=== PATIENT | male | born 1945 | race Asian ===

== ENCOUNTER 2017-01-04 15:14 | Inpatient (IN) | payer MEDICARE, BC ==
[~2017-01-04] VITALS: Ht 175.3 cm; Wt 74.6 kg
[2017-01-04 15:30] VITALS: BP 109/68
[2017-01-04] MEDS ORDERED: ONDANSETRON ODT 4 MG PO PRN (17:30)
[2017-01-04] MEDS ORDERED: ONDANSETRON 2MG/ML, 2ML IVPush PRN (17:30)
[2017-01-04] MEDS ORDERED: GLUCAGON 1 MG IM PRN (17:30)
[2017-01-04] MEDS ORDERED: HYDROcodone/APAP 5/325 TABLET PO PRN (17:30)
[2017-01-04] MEDS: INSULIN ASPART 100 UNITS/ML, PEN SQ-INSULIN SCH ×2 (17:30→20:24)
[2017-01-04] MEDS ORDERED: BISACODYL 10 MG SUPP PR PRN (17:30)
[2017-01-04] MEDS ORDERED: PLEASE ENTER ALLERGIES MC SCH ×2 (17:30)
[2017-01-04] MEDS ORDERED: MORPHINE SULFATE 4 MG/ML, 1ML IVPush PRN (17:30)
[2017-01-04] MEDS ORDERED: DEXTROSE 4 GM TAB.CHEW PO PRN (17:30)
[2017-01-04] MEDS: CARVEDILOL 12.5 MG TABLET PO SCH (18:27)
[2017-01-04] MEDS: HEPARIN 5,000 UNITS/ML, 1ML SQ SCH (19:00)
[2017-01-04] MEDS: SODIUM CHLORIDE FLUSH 10ML SYR IVF SCH (20:23)
[2017-01-04] MEDS: POTASSIUM CHLORIDE 10 MEQ in SODIUM CHLORIDE 0.9% 1,000 ML IV SCH (20:23)
[2017-01-04] MEDS: PIPERACILLIN/TAZO/PMX 3.375GM 50 ML IV SCH (20:23)
[2017-01-04 20:46] VITALS: BP 108/65
[2017-01-04] MEDS ORDERED: DOCUSATE 100 MG CAPSULE PO PRN (21:00)
[2017-01-05 01:20] VITALS: BP 115/69
[2017-01-05] MEDS: PIPERACILLIN/TAZO/PMX 3.375GM 50 ML IV SCH ×4 (02:31→21:17)
[2017-01-05] MEDS: HEPARIN 5,000 UNITS/ML, 1ML SQ SCH ×3 (03:00→21:33)
[2017-01-05 05:17] LABS: HEMATOCRIT 28.6 % (39.2-51.8); HEMOGLOBIN 9.9 g/dL (13.7-18.0); WHITE BLOOD COUNT 8.7 x10^3/uL (3.4-10)
[2017-01-05 05:24] LABS: BLOOD UREA NITROGEN 19 mg/dL (7-18)
[2017-01-05 05:27] LABS: ASPARTATE AMINO TRANSFERASE 71 U/L (15-37)
[2017-01-05] MEDS: CARVEDILOL 12.5 MG TABLET PO SCH ×2 (05:43→18:25)
[2017-01-05] MEDS: DEXTROSE 50%, 50ML SYRINGE IVPush PRN ×3 (05:44→13:41)
[2017-01-05 06:49] VITALS: BP 114/67
[2017-01-05] MEDS: POTASSIUM CHLORIDE 10 MEQ in SODIUM CHLORIDE 0.9% 1,000 ML IV SCH (07:09)
[2017-01-05] MEDS: INSULIN ASPART 100 UNITS/ML, PEN SQ-INSULIN SCH ×4 (08:00→21:00)
[2017-01-05] MEDS: SODIUM CHLORIDE FLUSH 10ML SYR IVF SCH ×2 (08:59→21:18)
[2017-01-05] MEDS: ALLOPURINOL 100 MG TABLET PO SCH (08:59)
[2017-01-05] MEDS ORDERED: POLYETHYLENE GLYCOL 17 GM PACKET PO PRN (09:00)
[2017-01-05] MEDS: LOSARTAN 50MG TABLET PO SCH (09:00)
[2017-01-05] MEDS ORDERED: POTASSIUM CHLORIDE 10 MEQ in D5%-0.45% NACL 1,000 ML IV SCH (11:00)
[2017-01-05] MEDS ORDERED: MAGNESIUM SULFATE PMX 2GM/50ML 50 ML IV ONE (11:00)
[2017-01-05 13:13] VITALS: BP 131/71
[2017-01-05] MEDS ORDERED: FENTANYL PF 100 MCG/2ML ONE (15:03)
[2017-01-05] MEDS ORDERED: ONDANSETRON 2MG/ML, 2ML ONE (15:04)
[2017-01-05] MEDS ORDERED: ROCURONIUM 10 MG/ML ONE (15:04)
[2017-01-05] MEDS ORDERED: PROPOFOL 10 MG/ML, 20ML ONE (15:04)
[2017-01-05] MEDS ORDERED: SUCCINYLCHOLINE 20 MG/ML, 10ML ONE (15:04)
[2017-01-05] MEDS ORDERED: EPHEDRINE 50 MG/ML, 1ML ONE (15:04)
[2017-01-05] MEDS ORDERED: OMNIPAQUE 350 MG/ML, 50 ML BOTTLE ONE (15:54)
[2017-01-05] MEDS ORDERED: HYDROmorphone 1 MG/ML, 1ML IV PRN (16:00)
[2017-01-05] MEDS ORDERED: FENTANYL PF 100 MCG/2ML IV PRN (16:00)
[2017-01-05] MEDS ORDERED: PROMETHAZINE 25 MG/ML, 1ML IV PRN (16:00)
[2017-01-05] MEDS ORDERED: OXYcodone 5 MG/5 ML ORAL.SOL UDC PO PRN (16:00)
[2017-01-05 21:30] VITALS: BP 132/73
[2017-01-06] MEDS: PIPERACILLIN/TAZO/PMX 3.375GM 50 ML IV SCH ×2 (02:30→08:24)
[2017-01-06 02:36] VITALS: BP 154/80
[2017-01-06 05:54] LABS: HEMATOCRIT 29.8 % (39.2-51.8); HEMOGLOBIN 10.3 g/dL (13.7-18.0); WHITE BLOOD COUNT 7.4 x10^3/uL (3.4-10)
[2017-01-06] MEDS: CARVEDILOL 12.5 MG TABLET PO SCH ×2 (06:00→18:10)
[2017-01-06] MEDS: HEPARIN 5,000 UNITS/ML, 1ML SQ SCH ×2 (06:00→16:34)
[2017-01-06 06:02] LABS: BLOOD UREA NITROGEN 20 mg/dL (7-18)
[2017-01-06 06:06] LABS: ASPARTATE AMINO TRANSFERASE 45 U/L (15-37)
[2017-01-06 07:31] VITALS: BP 135/77
[2017-01-06] MEDS: SODIUM CHLORIDE FLUSH 10ML SYR IVF SCH ×2 (08:24→20:33)
[2017-01-06] MEDS: ALLOPURINOL 100 MG TABLET PO SCH (08:24)
[2017-01-06] MEDS: LOSARTAN 50MG TABLET PO SCH (08:24)
[2017-01-06] MEDS: INSULIN ASPART 100 UNITS/ML, PEN SQ-INSULIN SCH ×4 (08:25→20:34)
[2017-01-06] MEDS ORDERED: CEFTRIAXONE PMX 1GM/50ML 50 ML IV SCH (09:00)
[2017-01-06] MEDS ORDERED: METRONIDAZOLE PMX 500MG/100ML 100 ML IV SCH (09:00)
[2017-01-06] MEDS ORDERED: POTASSIUM CHLORIDE 10 MEQ in D5%-0.45% NACL 1,000 ML IV SCH (11:00)
[2017-01-06] MEDS: LACTOBACILLUS CHEW TABLET PO SCH ×3 (11:55→20:33)
[2017-01-06] MEDS: METRONIDAZOLE PMX 500MG/100ML 100 ML IV SCH ×2 (11:55→19:06)
[2017-01-06 15:35] VITALS: BP 158/76
[2017-01-06 19:17] VITALS: BP 139/76
[2017-01-07] MEDS: HEPARIN 5,000 UNITS/ML, 1ML SQ SCH (01:09)
[2017-01-07 01:38] VITALS: BP 139/78
[2017-01-07] MEDS: METRONIDAZOLE PMX 500MG/100ML 100 ML IV SCH (03:15)
[2017-01-07 05:24] LABS: BLOOD UREA NITROGEN 21 mg/dL (7-18)
[2017-01-07 05:28] LABS: ASPARTATE AMINO TRANSFERASE 29 U/L (15-37)
[2017-01-07] MEDS: CARVEDILOL 12.5 MG TABLET PO SCH (05:45)
[2017-01-07] MEDS: INSULIN ASPART 100 UNITS/ML, PEN SQ-INSULIN SCH (07:37)
[2017-01-07 08:29] VITALS: BP 114/73
[2017-01-07] MEDS ORDERED: CARV12.52 PO (20:27)
[2017-01-07] MEDS ORDERED: GLYB5TAB3 PO ×2 (20:27→20:28)
[2017-01-07] MEDS ORDERED: ALLO100T30 PO (20:27)
[2017-01-07] MEDS ORDERED: LOVA40TA2 PO (20:27)
[2017-01-07] MEDS ORDERED: PIOG15TA4 PO (20:27)
[2017-01-07] MEDS ORDERED: LOSA50TA6 PO (20:27)
== END 2017-01-07 11:00 | disposition home or self-care (01) | DRG 919 ==
LOC: 4WST 15:14
PROVIDERS: ADMIT Internal Medicine; ATTEND Internal Medicine
PROC: 0FPB8DZ Removal of Intraluminal Device from Hepatobiliary Duct, Via Natural or Artificial Opening Endoscopic (ICD-10-PCS; 2017-01-05)
PROC: BF131ZZ Fluoroscopy of Gallbladder and Bile Ducts using Low Osmolar Contrast (ICD-10-PCS; 2017-01-05)
PROC: 0F798DZ Dilation of Common Bile Duct with Intraluminal Device, Via Natural or Artificial Opening Endoscopic (ICD-10-PCS; principal; 2017-01-05 14:00)
DX: T85.79XA Infection and inflammatory reaction due to other internal prosthetic devices, implants and grafts, initial encounter (principal); E43 Unspecified severe protein-calorie malnutrition; K83.0 Cholangitis; C25.9 Malignant neoplasm of pancreas, unspecified; E11.22 Type 2 diabetes mellitus with diabetic chronic kidney disease; K83.1 Obstruction of bile duct; D63.0 Anemia in neoplastic disease; E11.649 Type 2 diabetes mellitus with hypoglycemia without coma; I12.9 Hypertensive chronic kidney disease with stage 1 through stage 4 chronic kidney disease, or unspecified chronic kidney disease; K85.90 Acute pancreatitis without necrosis or infection, unspecified; E87.6 Hypokalemia; N18.2 Chronic kidney disease, stage 2 (mild); M10.9 Gout, unspecified; Z68.24 Body mass index [BMI] 24.0-24.9, adult; Z88.2 Allergy status to sulfonamides; Z80.0 Family history of malignant neoplasm of digestive organs; Z80.3 Family history of malignant neoplasm of breast; Z86.14 Personal history of Methicillin resistant Staphylococcus aureus infection; T85.520A Displacement of bile duct prosthesis, initial encounter
CPT/HCPCS: 36415; 71250; 74328; 80053; 82962; 85025; J0696; J1644; J1815; J2405; J2543; J2704; J3010; J3480; Q9967; C2625; J0330; J3475; J7030

== ENCOUNTER 2017-01-07 19:03 | Inpatient (IN) | payer MEDICARE, BC ==
[~2017-01-07] VITALS: Ht 175.3 cm; Wt 78.1 kg
[2017-01-07] MEDS ORDERED: SODIUM CHLORIDE FLUSH 10ML SYR IVF ONE (19:30)
[2017-01-07] MEDS ORDERED: ACETAMINOPHEN 650 MG SUPP PR ONE (19:30)
[2017-01-07] MEDS ORDERED: SODIUM CHLORIDE 0.9% 1,000ML IVBOLUS ONE (19:30)
[2017-01-07 20:00] LABS: HEMOGLOBIN 11.1 g/dL (13.7-18.0); WHITE BLOOD COUNT 10.2 x10^3/uL (3.4-10)
[2017-01-07 20:05] LABS: ASPARTATE AMINO TRANSFERASE 41 U/L (15-37); BLOOD UREA NITROGEN 25 mg/dL (7-18)
[2017-01-07] MEDS ORDERED: ACETAMINOPHEN 325 MG TABLET ONE (20:17)
[2017-01-07] MEDS ORDERED: LOVA40TA2 PO (20:27)
[2017-01-07] MEDS ORDERED: LOSA50TA6 PO (20:27)
[2017-01-07] MEDS ORDERED: ALLO100T30 PO (20:27)
[2017-01-07] MEDS ORDERED: GLYB5TAB3 PO ×2 (20:27→20:28)
[2017-01-07] MEDS ORDERED: PIOG15TA4 PO (20:27)
[2017-01-07] MEDS ORDERED: CARV12.52 PO (20:27)
[2017-01-07] MEDS ORDERED: ACETAMINOPHEN 325 MG TABLET PO ONE (20:30)
[2017-01-07] MEDS ORDERED: PIPERACILLIN/TAZO/PMX 4.5GM 100 ML IV ONE (21:00)
[2017-01-07] MEDS: PIPERACILLIN/TAZO/PMX 3.375GM 50 ML IV SCH (21:15)
[2017-01-07] MEDS ORDERED: DEXTROSE 50%, 50ML SYRINGE IVPush PRN (21:30)
[2017-01-07] MEDS ORDERED: LABETALOL 5MG/ML, 20ML IVPush PRN (21:30)
[2017-01-07] MEDS ORDERED: PROMETHAZINE 25 MG/ML, 1ML IM PRN (21:30)
[2017-01-07] MEDS ORDERED: DEXTROSE 4 GM TAB.CHEW PO PRN (21:30)
[2017-01-07] MEDS ORDERED: GLUCAGON 1 MG IM PRN (21:30)
[2017-01-07] MEDS ORDERED: PHARMACY MAY ADJ FOR RENAL FX MC PRN (21:30)
[2017-01-07] MEDS ORDERED: ONDANSETRON 2MG/ML, 2ML IVPush PRN (21:30)
[2017-01-07] MEDS ORDERED: hydrALAzine 20 MG/ML, 1ML IVPush PRN (21:30)
[2017-01-07] MEDS ORDERED: morphine SULFATE 10 MG/ML, 1ML IVPush PRN (21:30)
[2017-01-07] MEDS: SODIUM CHLORIDE 0.9% 1,000 ML IV SCH (21:55)
[2017-01-07] MEDS: HEPARIN 5,000 UNITS/ML, 1ML SQ SCH (21:56)
[2017-01-07 23:43] VITALS: BP 147/77
[2017-01-08] MEDS: PIPERACILLIN/TAZO/PMX 3.375GM 50 ML IV SCH ×4 (03:57→20:30)
[2017-01-08 04:02] VITALS: BP 145/69
[2017-01-08] MEDS ORDERED: ACETAMINOPHEN 325 MG TABLET PO ONE (04:30)
[2017-01-08] MEDS ORDERED: ACETAMINOPHEN 650 MG SUPP PR ONE (04:30)
[2017-01-08] MEDS: SODIUM CHLORIDE 0.9% 1,000 ML IV SCH ×2 (04:38→13:06)
[2017-01-08 05:05] LABS: HEMATOCRIT 32.5 % (39.2-51.8); HEMOGLOBIN 11.2 g/dL (13.7-18.0)
[2017-01-08 05:13] LABS: BLOOD UREA NITROGEN 20 mg/dL (7-18)
[2017-01-08 05:17] LABS: ASPARTATE AMINO TRANSFERASE 47 U/L (15-37)
[2017-01-08] MEDS: HEPARIN 5,000 UNITS/ML, 1ML SQ SCH ×3 (05:18→20:30)
[2017-01-08] MEDS: INSULIN ASPART 100 UNITS/ML, PEN SQ-INSULIN SCH ×4 (07:00→20:44)
[2017-01-08 08:28] VITALS: BP 132/68
[2017-01-08] MEDS: SODIUM CHLORIDE FLUSH 10ML SYR IVF SCH ×2 (09:00→20:30)
[2017-01-08] MEDS ORDERED: SUCCINYLCHOLINE 20 MG/ML, 10ML ONE (14:46)
[2017-01-08] MEDS ORDERED: PROPOFOL 10 MG/ML, 20ML ONE (14:46)
[2017-01-08] MEDS ORDERED: EPHEDRINE 50 MG/ML, 1ML ONE (14:46)
[2017-01-08] MEDS ORDERED: ONDANSETRON 2MG/ML, 2ML ONE (14:46)
[2017-01-08] MEDS ORDERED: FENTANYL PF 100 MCG/2ML IV PRN (16:30)
[2017-01-08] MEDS ORDERED: ACETAMINOPHEN 325 MG TABLET PO PRN (16:30)
[2017-01-08] MEDS ORDERED: ONDANSETRON 2MG/ML, 2ML IVPush PRN (16:30)
[2017-01-08] MEDS ORDERED: hydrALAzine 20 MG/ML, 1ML IV PRN (16:30)
[2017-01-08] MEDS ORDERED: HYDROmorphone 1 MG/ML, 1ML IV PRN (16:30)
[2017-01-08] MEDS ORDERED: LABETALOL 5MG/ML, 20ML IV PRN (16:30)
[2017-01-08] MEDS ORDERED: OXYcodone 5 MG/5 ML ORAL.SOL UDC PO PRN (16:30)
[2017-01-08] MEDS ORDERED: MAGNESIUM SULFATE PMX 2GM/50ML 50 ML IV ONE (17:00)
[2017-01-08] MEDS ORDERED: POTASSIUM CHLORIDE 20 MEQ TAB.ER.PRT PO ONE (17:00)
[2017-01-08] MEDS ORDERED: POTASSIUM PHOSPHATE 22 MEQ in SODIUM CHLORIDE 0.9% 500 ML IV ONE (17:00)
[2017-01-08 17:20] VITALS: BP 147/79
[2017-01-08 19:01] VITALS: BP 153/81
[2017-01-09] MEDS: NS + 20MEQ KCL 1,000 ML IV SCH ×2 (03:49→20:00)
[2017-01-09 03:50] VITALS: BP 133/73
[2017-01-09] MEDS: PIPERACILLIN/TAZO/PMX 3.375GM 50 ML IV SCH ×4 (03:50→20:01)
[2017-01-09 05:21] LABS: ASPARTATE AMINO TRANSFERASE 30 U/L (15-37); BLOOD UREA NITROGEN 16 mg/dL (7-18)
[2017-01-09 05:29] LABS: HEMATOCRIT 30.3 % (39.2-51.8); HEMOGLOBIN 10.4 g/dL (13.7-18.0); WHITE BLOOD COUNT 20.3 x10^3/uL (3.4-10)
[2017-01-09] MEDS: HEPARIN 5,000 UNITS/ML, 1ML SQ SCH ×3 (05:30→20:01)
[2017-01-09 06:59] VITALS: BP 120/70
[2017-01-09] MEDS: INSULIN ASPART 100 UNITS/ML, PEN SQ-INSULIN SCH ×4 (08:05→20:09)
[2017-01-09] MEDS: SODIUM CHLORIDE FLUSH 10ML SYR IVF SCH ×2 (09:33→20:01)
[2017-01-09] MEDS: IBUPROFEN 200 MG TABLET PO PRN (09:33)
[2017-01-09] MEDS ORDERED: POTASSIUM PHOSPHATE 22 MEQ in SODIUM CHLORIDE 0.9% 500 ML IV ONE (10:30)
[2017-01-09] MEDS ORDERED: OMNIPAQUE 350 MG/ML, 100ML BOTTLE ONE (11:12)
[2017-01-09 12:54] VITALS: BP 106/69
[2017-01-09 19:57] VITALS: BP 115/70
[2017-01-09] MEDS: CARVEDILOL 12.5 MG TABLET PO SCH ×2 (20:01→20:10)
[2017-01-10 00:59] VITALS: BP 125/73
[2017-01-10] MEDS: PIPERACILLIN/TAZO/PMX 3.375GM 50 ML IV SCH ×4 (03:42→20:38)
[2017-01-10 05:01] LABS: HEMATOCRIT 29.2 % (39.2-51.8); HEMOGLOBIN 9.9 g/dL (13.7-18.0); WHITE BLOOD COUNT 17.7 x10^3/uL (3.4-10)
[2017-01-10 05:11] LABS: BLOOD UREA NITROGEN 19 mg/dL (7-18)
[2017-01-10 05:16] LABS: ASPARTATE AMINO TRANSFERASE 11 U/L (15-37)
[2017-01-10] MEDS: HEPARIN 5,000 UNITS/ML, 1ML SQ SCH ×3 (05:51→20:38)
[2017-01-10] MEDS: CARVEDILOL 12.5 MG TABLET PO SCH ×2 (07:50→20:38)
[2017-01-10] MEDS: INSULIN ASPART 100 UNITS/ML, PEN SQ-INSULIN SCH ×4 (07:52→20:37)
[2017-01-10] MEDS: SODIUM CHLORIDE FLUSH 10ML SYR IVF SCH ×2 (07:52→20:38)
[2017-01-10] MEDS: NS + 20MEQ KCL 1,000 ML IV SCH (09:33)
[2017-01-10 15:30] VITALS: BP 138/76
[2017-01-10 20:06] VITALS: BP 143/77
[2017-01-10] MEDS: IBUPROFEN 200 MG TABLET PO PRN (20:47)
[2017-01-10 21:02] VITALS: BP 162/93
[2017-01-11 02:05] VITALS: BP 123/72
[2017-01-11] MEDS: PIPERACILLIN/TAZO/PMX 3.375GM 50 ML IV SCH ×3 (03:27→15:18)
[2017-01-11 04:25] LABS: HEMATOCRIT 26.5 % (39.2-51.8); WHITE BLOOD COUNT 14.7 x10^3/uL (3.4-10)
[2017-01-11] MEDS: HEPARIN 5,000 UNITS/ML, 1ML SQ SCH ×2 (05:44→14:01)
[2017-01-11 05:58] LABS: ASPARTATE AMINO TRANSFERASE 16 U/L (15-37); BLOOD UREA NITROGEN 21 mg/dL (7-18)
[2017-01-11] MEDS: SODIUM CHLORIDE FLUSH 10ML SYR IVF SCH (07:38)
[2017-01-11] MEDS: CARVEDILOL 12.5 MG TABLET PO SCH (07:38)
[2017-01-11] MEDS: INSULIN ASPART 100 UNITS/ML, PEN SQ-INSULIN SCH ×2 (07:38→11:24)
[2017-01-11 08:30] VITALS: BP_SYST 111; BP_SYST 98; BP_DIAS 66; BP_DIAS 69
[2017-01-11] MEDS ORDERED: ACETAMINOPHEN 325 MG TABLET PO PRN (11:00)
[2017-01-11 14:30] VITALS: BP 139/73
[2017-01-11] MEDS ORDERED: CIPR500T87 PO (15:17)
[2017-01-11] MEDS ORDERED: METR500T PO (15:17)
== END 2017-01-11 16:55 | disposition home or self-care (01) | DRG 423 ==
LOC: ED 20:06 → SUATTDRO 20:43 → EDIP 21:13 → 3NE 23:30 → 3NW 01-08 15:21
PROVIDERS: ADMIT Internal Medicine; ATTEND Internal Medicine
PROC: 0DJ08ZZ Inspection of Upper Intestinal Tract, Via Natural or Artificial Opening Endoscopic (ICD-10-PCS; principal; 2017-01-08)
PROC: 07BD4ZX Excision of Aortic Lymphatic, Percutaneous Endoscopic Approach, Diagnostic (ICD-10-PCS; 2017-01-08)
PROC: 0FBG4ZX Excision of Pancreas, Percutaneous Endoscopic Approach, Diagnostic (ICD-10-PCS; 2017-01-08)
PROC: BD49ZZZ Ultrasonography of Duodenum (ICD-10-PCS; 2017-01-11)
DX: K83.0 Cholangitis (principal); E43 Unspecified severe protein-calorie malnutrition; N17.0 Acute kidney failure with tubular necrosis; C25.9 Malignant neoplasm of pancreas, unspecified; K83.1 Obstruction of bile duct; E87.1 Hypo-osmolality and hyponatremia; E11.22 Type 2 diabetes mellitus with diabetic chronic kidney disease; R16.1 Splenomegaly, not elsewhere classified; D63.8 Anemia in other chronic diseases classified elsewhere; I12.9 Hypertensive chronic kidney disease with stage 1 through stage 4 chronic kidney disease, or unspecified chronic kidney disease; R19.7 Diarrhea, unspecified; M10.9 Gout, unspecified; E11.65 Type 2 diabetes mellitus with hyperglycemia; N18.3 Chronic kidney disease, stage 3 (moderate); Z80.0 Family history of malignant neoplasm of digestive organs; Z86.14 Personal history of Methicillin resistant Staphylococcus aureus infection; Z68.25 Body mass index [BMI] 25.0-25.9, adult
CPT/HCPCS: 36415; 71010; 74000; 74170; 76000; 76700; 80053; 81001; 82247; 82248; 82962; 83605; 83735; 84100; 85025; 87040; 87324; 88172; 88173; 88177; 88184; 88185; 88305; 88307; 93005; 96361; 96365; J1644; J1815; J2250; J2405; J2543; J2704; J3010; J3480; Q9967; J0330; J3475; J7030; J7040